=== PATIENT | female | born 1955 | race Two or more races ===

== ENCOUNTER 2025-11-18 13:06 | Emergency (ER) | payer OTHER ==
[~2025-11-18] VITALS: Ht 167.6 cm; Wt 52.2 kg
[2025-11-18] MEDS ORDERED: 0.9 % SODIUM CHLORIDE 1,000 ML IV STA (15:27)
[2025-11-18] MEDS ORDERED: FAMOTIDINE/PF 20 MG/2 ML VIAL IV STA (15:27)
[2025-11-18] MEDS ORDERED: DEXAMETHASONE SODIUM PHOSPHATE 4 MG/ML VIAL IM STA (15:27)
[2025-11-18] MEDS ORDERED: DEXAMETHASONE SODIUM PHOSPHATE 4 MG/ML VIAL ONE (15:43)
[2025-11-18] MEDS ORDERED: FAMOTIDINE/PF 20 MG/2 ML VIAL ONE (15:43)
[2025-11-18 16:14] LABS: BASO % 1.0 % (0.1-1.2); EOS # 0.16 (0.04-0.54); EOS % 8.1 % (0.7-7.0); LYMPH # 1.15 (1.18-3.74); LYMPH % 58.1 % (19.3-53.1); MEAN PLATELET VOLUME 9.70 fl (9.4-12.4); MONO # 0.28 (0.24-0.82); NEUT # 0.37 (1.56-6.13); NEUT % 18.7 % (34.0-71.1); RED CELL DISTRIBUTION WIDTH 15.1 % (11.6-14.4)
[2025-11-18 16:16] LABS: MONO % 14.1 % (4.7-12.5)
[2025-11-18 16:28] LABS: INR 0.96
[2025-11-18 16:30] LABS: BUN CREA RATIO 15.0 (7.0-25.0); CREATININE SERUM 1.16 mg/dL (0.55-1.02); GFR 46.05; GLUCOSE FASTING 124.0 mg/dL (65-100); OSMOLALITY SERUM 286.0 MOSM/KG (275-295)
== END 2025-11-18 18:16 | disposition home or self-care (01) ==
LOC: ER 13:06
PROVIDERS: General Practice
DX: K62.3 Rectal prolapse (principal); Z88.6 Allergy status to analgesic agent; J45.909 Unspecified asthma, uncomplicated; E03.8 Other specified hypothyroidism; I10 Essential (primary) hypertension; E11.9 Type 2 diabetes mellitus without complications